=== PATIENT | male | born 1955 ===

== ENCOUNTER 2018-04-02 05:00 | Day surgery (SDC) | payer OTHER ==
[~2018-04-02 05:00] MED LIST: AMLODIPINE-BEN1 EAC5 PO; ATORVASTATIN CA20 MG PO; CARVEDILOL25 MG PO; COZAAR100 MG PO; FORTAMET1000 MG PO
[2018-04-02] MEDS ORDERED: ULTRACET PO (12:56)
[2018-04-02] MEDS ORDERED: MIRALAX17 GM PO (12:56)
[2018-04-02] MEDS ORDERED: NEURONTIN300 MG PO (13:47)
== END 2018-04-02 17:00 | disposition home or self-care (01) ==
LOC: CIR.AMB 05:00
DX: K40.90 Unilateral inguinal hernia, without obstruction or gangrene, not specified as recurrent (principal)